=== PATIENT | male | born 1985 | race Two or more races ===

== ENCOUNTER 2020-11-12 21:21 | Emergency (ER) | payer OTHER ==
[~2020-11-12] VITALS: Ht 172.7 cm; Wt 63.5 kg
[2020-11-12 22:19] VITALS: BP 144/87
== END 2020-11-12 22:36 | disposition home or self-care (01) ==
LOC: ER 21:23
DX: J03.80 Acute tonsillitis due to other specified organisms (principal); B96.89 Other specified bacterial agents as the cause of diseases classified elsewhere; R50.9 Fever, unspecified; R09.81 Nasal congestion; H92.01 Otalgia, right ear; R51.9 Headache, unspecified